=== PATIENT | male | born 1995 | race Caucasian/White ===

== ENCOUNTER 2019-11-18 12:15 | Emergency (ER) | payer MEDICAID ==
[~2019-11-18] VITALS: Ht 182.9 cm; Wt 90.0 kg
[2019-11-18 12:17] VITALS: BP 95/60
== END 2019-11-18 13:01 | disposition left against medical advice (07) ==
LOC: ER 12:15
DX: Z53.21 Procedure and treatment not carried out due to patient leaving prior to being seen by health care provider (principal)